=== PATIENT | male | born 1990 | race Hispanic/Latino ===

== ENCOUNTER 2017-12-06 08:42 | Emergency (ER) | payer SELFPAY ==
[2017-12-06 09:02] VITALS: BP 132/74
== END 2017-12-06 14:44 ==
LOC: ED 08:42
DX: R09.89 Other specified symptoms and signs involving the circulatory and respiratory systems (principal); Z53.21 Procedure and treatment not carried out due to patient leaving prior to being seen by health care provider

== ENCOUNTER 2020-01-05 17:38 | Emergency (ER) | payer SELFPAY ==
--- NOTE | 2020-01-05 21:16 | Event Note ---
ED Screening Note ED Screening Note: Pt presents with right knee pain that began today no fall or injury no numbness or weakness states that he is limping now states that he cannot stretch the leg out states he has right knee swelling PMHx asthma allergy: cefaclor, rocephin, penicillin, cefprozil This initial assessment/diagnostic orders/clinical plan/treatment(s) is/are subject to change based on patients health status, clinical progression and re- assessment by fellow clinical providers in the ED. Further treatment and workup at subsequent clinical providers discretion. Patient/guardian urged not to elope from the ED as their condition may be serious if not clinically assessed and managed. Initial orders include: XR of the right knee
[2020-01-05] MEDS ORDERED: predniSONE 20 MG TAB PO ONE (22:03)
[2020-01-05] MEDS ORDERED: IBUPROFEN 600 MG TAB PO ONE (22:03)
[2020-01-05] MEDS ORDERED: SULFAMETHOXAZOLE/TRIMETHOPRIM 800/160MG DS TAB PO ONE (22:03)
--- NOTE | 2020-01-05 22:45 | XRay Report ---
Right knee, 3 views INDICATION: Nontraumatic pain and swelling FINDINGS: The joint space is maintained. There is no fracture or dislocation. No spurring or arthriti c change. No bone lesion or periostitis. No significant abnormality. IMPRESSION: Negative study Signer Name: Nabil Max MD Signed: 01/05/2020 10:41 PM Workstation Name: [id number]
--- NOTE | 2020-01-05 23:31 | Emergency Department Report ---
ED General Adult HPI - General Chief complaint: Skin/Abscess/Foreign Body Stated complaint: KNEE Time Seen by Provider: 01/05/20 21:13 Source: patient Mode of arrival: Ambulatory Limitations: No Limitations - History of Present Illness Initial comments: Patient is 29-year-old male who presented to the ED with persistent chronic right knee pain with swelling for the last 1 week, worse in the last 2 days. Patient also complained of persistent mildly erythematous dorsal left foot rash around an open wound. Patient states that the pain in the right knee has worsened in the last 2 days. Patient states that the pain is worse with any active range of motion. Patient denies fever, chills, cough, nausea, vomiting, diarrhea, dizziness, headache, fall, traumatic injury, chest pain, shortness of breath, numbness and tingling or weakness of lower extremities bilaterally. MD Complaint: right knee pain; swollen erythematous open left foot wound -: Sudden, week(s) (1) Location: lower extremity (left foot; right knee) Radiation: non-radiation Severity scale (0 -10): 8 Quality: aching, sharp, constant Improves with: none Worsens with: none Associated Symptoms: denies other symptoms, rash (erythematous swollen painful left foot rash). denies: confusion, chest pain, cough, diaphoresis, fever/chills, headaches, loss of appetite, malaise, nausea/vomiting, seizure, shortness of breath, syncope, weakness Treatments Prior to Arrival: none - Related Data Previous Rx's Medication Instructions Recorded Last Taken Type Naproxen 500 mg PO Q12HR PRN #15 tablet 09/18/18 Unknown Rx levoFLOXacin [Levaquin TAB] 500 mg PO ONCE 10 Days #10 tablet 09/18/18 Unknown Rx Cyclobenzaprine [Flexeril] 10 mg PO Q8H PRN #15 tablet 01/05/20 Unknown Rx Ibuprofen [Motrin] 600 mg PO Q8H PRN #24 tablet 01/05/20 Unknown Rx Sulfamethoxazole/Trimethoprim 1 each PO Q12H #20 tablet 01/05/20 Unknown Rx [Bactrim DS TAB] predniSONE [Deltasone] 40 mg PO QDAY #10 tab 01/05/20 Unknown Rx Allergies Allergy/AdvReac Type Severity Reaction Status Date / Time cefaclor [From Ceclor] Allergy Unknown Verified 09/18/18 14:50 cefprozil [From Cefzil] Allergy Unknown Verified 09/18/18 14:50 ceftriaxone [From Rocephin] Allergy Unknown Verified 09/18/18 14:50 Penicillins Allergy Unknown Verified 09/18/18 14:50 ED Review of Systems ROS: Stated complaint: KNEE Other details as noted in HPI Constitutional: denies: chills, fever Eyes: denies: eye pain, eye discharge, vision change ENT: denies: ear pain, throat pain Respiratory: denies: cough, shortness of breath, wheezing Cardiovascular: denies: chest pain, palpitations Endocrine: no symptoms reported Gastrointestinal: denies: abdominal pain, nausea, diarrhea Genitourinary: denies: urgency, dysuria Musculoskeletal: joint swelling (right knee pain), arthralgia (right knee pain), myalgia, other (left foot pain due to open erythematous rash). denies: back pain Skin: rash (erythematous swollen painful rash on left foot). denies: lesions Neurological: denies: headache, weakness, paresthesias Psychiatric: denies: anxiety, depression Hematological/Lymphatic: denies: easy bleeding, easy bruising ED Past Medical Hx - Past Medical History Previous Medical History?: Yes Hx Asthma: Yes - Surgical History Past Surgical History?: Yes Additional Surgical History: testicular surgery. 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 - Social History Smoking Status: Current Every Day Smoker Substance Use Type: Alcohol, Marijuana - Medications Home Medications: Home Medications Medication Instructions Recorded Confirmed Last Taken Type Naproxen 500 mg PO Q12HR PRN #15 tablet 09/18/18 Unknown Rx levoFLOXacin [Levaquin TAB] 500 mg PO ONCE 10 Days #10 tablet 09/18/18 Unknown Rx Cyclobenzaprine [Flexeril] 10 mg PO Q8H PRN #15 tablet 01/05/20 Unknown Rx Ibuprofen [Motrin] 600 mg PO Q8H PRN #24 tablet 01/05/20 Unknown Rx Sulfamethoxazole/Trimethoprim 1 each PO Q12H #20 tablet 01/05/20 Unknown Rx [Bactrim DS TAB] predniSONE [Deltasone] 40 mg PO QDAY #10 tab 01/05/20 Unknown Rx ED Physical Exam - General Limitations: No Limitations General appearance: alert, in no apparent distress - Head Head exam: Present: atraumatic, normocephalic, normal inspection - Eye Eye exam: Present: normal appearance, PERRL, EOMI Pupils: Present: normal accommodation - ENT ENT exam: Present: normal exam, normal orophraynx, mucous membranes moist, TM's normal bilaterally, normal external ear exam - Neck Neck exam: Present: normal inspection, full ROM - Respiratory Respiratory exam: Present: normal lung sounds bilaterally. Absent: respiratory distress, wheezes, rales, rhonchi, chest wall tenderness, accessory muscle use, decreased breath sounds - Cardiovascular Cardiovascular Exam: Present: regular rate, normal rhythm, normal heart sounds. Absent: systolic murmur, diastolic murmur, rubs, gallop - GI/Abdominal GI/Abdominal exam: Present: soft, normal bowel sounds. Absent: distended, tenderness, guarding, rebound, hyperactive bowel sounds, hypoactive bowel sounds, organomegaly - Extremities Exam Extremities exam: Present: normal inspection, full ROM, tenderness (Palpable right knee tenderness with mild swelling; palpable dorsal left foot tenderness due to a mildly erythematous maculopapular rash on an open wound), normal capillary refill, joint swelling (right knee). Absent: calf tenderness - Back Exam Back exam: Present: normal inspection, full ROM. Absent: tenderness, CVA tenderness (R), CVA tenderness (L), muscle spasm, paraspinal tenderness, vertebr al tenderness - Neurological Exam Neurological exam: Present: alert, oriented X3, CN II-XII intact, normal gait, reflexes normal - Psychiatric Psychiatric exam: Present: normal affect, normal mood - Skin Skin exam: Present: warm, dry, intact, normal color, rash (Mildly erythematous maculopapular rash around an open left dorsal foot wound), erythema ED Course Vital Signs 01/05/20 01/05/20 01/05/20 19:12 21:15 22:19 Temperature 99.1 F 99.1 F Pulse Rate 82 83 Respiratory 18 18 18 Rate Blood Pressure 138/92 138/92 O2 Sat by Pulse 98 98 Oximetry ED Medical Decision Making - Radiology Data Radiology results: report reviewed, image reviewed Right knee x-ray shows no acute fractures or subluxations. - Medical Decision Making In this is a 29-year-old male with a history of chronic right knee pain who presented to the ED with acute exacerbation of the right knee pain for the last 2 days and swollen mildly erythematous rash on the dorsal left foot around an open wound. In the ED, patient is alert and oriented x3 and is not in any distress. Patient was treated for pain and also given oral antibiotics in the ED. Right knee x-ray shows no acute fractures or subluxations. On reevaluation, patient's pain is well controlled with medications. Patient was discharged home on medications and advised follow-up with his primary care physician in 7 to 10 days for reevaluation. Patient was advised return to the ED immediately if symptoms get worse. - Differential Diagnosis cellulitis; right knee pain; osteoarthritis; right knee sprain Critical care attestation.: If time is entered above; I have spent that time in minutes in the direct care o f this critically ill patient, excluding procedure time. ED Disposition Clinical Impression: Cellulitis of left foot, Right anterior knee pain Disposition: TO HOME OR SELFCARE Is pt being admited?: No Does the pt Need Aspirin: No Condition: Stable Instructions: Arthralgia (ED), Knee Pain (ED), Cellulitis (ED) Additional Instructions: Take medication with food, drink plenty of fluids and follow-up with your primary care physician in 7 to 10 days for reevaluation. Return to the ED immediately if symptoms get worse. Prescriptions: Sulfamethoxazole/Trimethoprim [Bactrim DS TAB] 1 each PO Q12H #20 tablet predniSONE [Deltasone] 40 mg PO QDAY #10 tab Cyclobenzaprine [Flexeril] 10 mg PO Q8H PRN #15 tablet PRN Reason: Muscle Spasm Ibuprofen [Motrin] 600 mg PO Q8H PRN #24 tablet PRN Reason: Pain Referrals: [facility] [Outside] - 7-10 days Time of Disposition: 23:34 Print Language: AZERI
[2020-01-06 00:30] VITALS: BP 150/84
== END 2020-01-06 00:20 | disposition home or self-care (01) ==
LOC: ED 17:38
DX: L03.116 Cellulitis of left lower limb (principal); L03.115 Cellulitis of right lower limb; J45.909 Unspecified asthma, uncomplicated; F17.200 Nicotine dependence, unspecified, uncomplicated; F12.10 Cannabis abuse, uncomplicated; Z88.0 Allergy status to penicillin; Z88.1 Allergy status to other antibiotic agents; Z79.899 Other long term (current) drug therapy
CPT/HCPCS: 73562; 99283; J7512

== ENCOUNTER 2020-10-08 19:05 | Emergency (ER) | payer SELFPAY ==
--- NOTE | 2020-10-08 19:11 | Event Note ---
ED Screening Note Date of service: 10/08/20 Time: 19:10 ED Screening Note: Patient presents via EMS for suicidal ideations Patient denies any SI/HI and states that he told his mother he was very depressed due to his leaving him and his mother called [phone] He reports a history of bipolar disorder and states compliance with his medications States history of suicidal ideations This initial assessment/diagnostic orders/clinical plan/treatment(s) is/are subject to change based on patients health status, clinical progression and re- assessment by fellow clinical providers in the ED. Further treatment and workup at subsequent clinical providers discretion. Patient/guardian urged not to elope from the ED as their condition may be serious if not clinically assessed and managed. Initial orders include: Labs Mental health eval
[2020-10-08 19:59] LABS: Basophils # (Auto) 0.1 K/mm3 (0.0-0.1); Basophils % (Auto) 0.5 % (0.0-1.8); Eosinophils # (Auto) 0.3 K/mm3 (0.0-0.4); Eosinophils % (Auto) 2.9 % (0.0-4.3); Hematocrit 46.8 % (35.5-45.6); Lymphocytes # (Auto) 2.6 K/mm3 (1.2-5.4); Lymphocytes % (Auto) 25.5 % (13.4-35.0); Mean Corpuscular HGB Conc 34 % (32-34); Mean Corpuscular Volume 93 fl (84-94); Monocytes # (Auto) 0.8 K/mm3 (0.0-0.8); Monocytes % (Auto) 7.8 % (0.0-7.3); Platelet Count 231 K/mm3 (140-440); Red Blood Count 5.04 M/mm3 (3.65-5.03); Red Cell Distribution Width 13.2 % (13.2-15.2)
[2020-10-08 20:08] LABS: Alanine Aminotransferase 12 units/L (7-56); Albumin 4.9 g/dL (3.9-5); BUN/Creatinine Ratio 7; Blood Urea Nitrogen 8 mg/dL (9-20); Hemolysis Index 8
[2020-10-08 20:14] LABS: Cocaine Screen,Urine Negative; Methadone Screen,Urine Negative; Opiate Screen,Urine Negative
[2020-10-08 20:27] LABS: Amphetamine Screen,Urine Positive; Benzodiazepines Screen,Urine Positive; Cannabinoid Screen,Urine Positive
[2020-10-08 20:34] LABS: Bilirubin,Urine NEG (Negative); Blood,Urine SM (Negative); Color,Urine Yellow (Yellow); Mucus,Urine FEW /HPF; Urobilinogen,Urine < 2.0 mg/dL (<2.0)
[2020-10-08] MEDS ORDERED: NICOTINE 21 MG/24 HR PATCH TD ONE (23:43)
--- NOTE | 2020-10-09 10:37 | Consultation ---
History of Present Illness - Reason for Consult Consult date: 10/09/20 Reason for consult: suicidal ideation - History of Present Psychiatric Illness The patient's medical record was reviewed and the patient's progress was discussed with the nursing staff. Cristo Wolff is a 30y/o male patient who was brought into the hospital by ambulance after mom called because the patient stated something about wanting to . During my interview with the patient he is a/ox 3. He is lucid and conversational. He is calm and cooperative. The patient says he's going through a divorce. He says his told him she was leaving and it made him say some things that he shouldn't have. The patient states, "am I depressed? yes. Suicidal, no." He says "my mom actually took that and ran." He says, "I told her I felt like dying, but that's a difference than me actually trying to hurt myself." He says, "I do say that a lot but I've never actually gone through with it." He says, "I'll never call my mom for help again, because she takes things to the extreme." The patient says "I have kids. I watch them while my works and I would never hurt myself for that reason." He denies any suicidal attempts in the past, he says "thoughts and say it a lot, but not actual attempts." The patient also denies hallucinations of any kind. He says he was diagnosed with "bipolar, and chronic anxiety disorder" He says he takes "trileptal, and klonopin." The patient says he's tried different drugs. He says "but most recently THC and klonopin." He is positive for methamphetamine, benzos and THC. The patient states that he is prescribed klonopin. Spoke with mom, who does confirm most of what the patient says. She says the patient is going through a divorce and he watches his children. She says that the patient has never had a suicidal attempt but she says he says it a lot. When asking mom about him hanging himself, she says he did not attempt to hang himself but she says there was a rope in the shed with a brick tied to it. Mom says the patient is very impulsive and will take any drug he gets his hands on. She says but he doesn't intentional take meds to overdose, but states he does drugs. She says he was recently admitted to [facility] about five moths ago for threatening to jump off of a bridge. Mom says the patient [place] himself, and was hitting himself as hard as he could last night. She says he has a dark side and can switch like a light switch. Mom says he doesn't comply with his medical regimen that much and only sees his psychiatrist when he runs out of meds. Mom says everytime he's admitted into a psych facility he goes for a couple of days and then they send him home. PAST PSYCHIATRIC HISTORY Diagnoses: Bipolar and chronic anxiety disorder Suicide attempts or Self-harm behavior: None reported Prior psychiatric hospitalizations: Yes Substance Abuse history: meth, benzos Previous psychiatric medications tried: Trileptal, benzos Outpatient treatment: yes PAST MEDICAL HISTORY: None reported Family Psychiatric History: None reported or documented SOCIAL HISTORY Marital Status: Living Arrangements: with family Employment Status: Unemployed Access to guns/weapons: Denies Education: 12th grade History of Abuse: Denies Legal History: None reported REVIEW OF SYSTEMS Constitutional: Negative for weight loss ENT: Negative for stridor Respiratory: Negative for cough or hemoptysis All other systems reviewed and are negative MENTAL STATUS EXAMINATION General Appearance and Behavior: Age appropriate, good hygiene, not wearing appropriate clothes, good eye contact, cooperative polite with questioning. Cooperation: Participating/engaged Psychomotor Behavior: Psychomotor normal Mood: "depressed" Affect and affective range: Congruent with stated mood Thought Process: goal directed Thought Content: None Speech: pressured, loud volume at times Suicidal Ideation: Denies SI Homicidal Ideation: Denies HI Hallucinations: Denies Delusions: None elicited Impulse Control: Impaired Insight and Judgment: Limited insight and judgment Memory: Normal, Attention: Divided attention impaired Orientation: Alert, oriented, Assessment and Plan Acute Stress Reaction Bipolar Disorder, Current Episode Depressed Amphetamine Use Disorder Noncompliance with other medical treatment and regimen Treatment D/c 1013 Start Zoloft 25mg po daily Start Vistaril 25mg po BID Start Depakote DR 125mg po BID Start Trazodone 50mg po qhs Medical: Per primary Sitter: Defer to [facility] Disposition: Recommend acute inpatient treatment Will follow on Sunday if not transferred. Medications and Allergies Allergies Allergy/AdvReac Type Severity Reaction Status Date / Time cefaclor [From Ceclor] Allergy Unknown Verified 09/18/18 14:50 cefprozil [From Cefzil] Allergy Unknown Verified 09/18/18 14:50 ceftriaxone [From Rocephin] Allergy Unknown Verified 09/18/18 14:50 Penicillins Allergy Unknown Verified 09/18/18 14:50 Home Medications Medication Instructions Recorded Confirmed Last Taken Type Naproxen 500 mg PO Q12HR PRN #15 tablet 09/18/18 Unknown Rx levoFLOXacin [Levaquin TAB] 500 mg PO ONCE 10 Days #10 tablet 09/18/18 Unknown Rx Cyclobenzaprine [Flexeril] 10 mg PO Q8H PRN #15 tablet 01/05/20 Unknown Rx Ibuprofen [Motrin] 600 mg PO Q8H PRN #24 tablet 01/05/20 Unknown Rx Sulfamethoxazole/Trimethoprim 1 each PO Q12H #20 tablet 01/05/20 Unknown Rx [Bactrim DS TAB] predniSONE [Deltasone] 40 mg PO QDAY #10 tab 01/05/20 Unknown Rx Mental Status Exam - Vital signs Last Vital Signs Temp 97.6 F 10/09/20 08:27 Pulse 76 10/09/20 08:27 Resp 20 10/09/20 08:27 BP 100/60 10/09/20 08:27 Pulse Ox 95 10/09/20 08:27 Results Result Diagrams: 10/08/20 19:21 10/08/20 19:21 Abnormal lab results 10/08/20 10/08/20 10/08/20 Range/Units 19:21 19:21 19:21 RBC 5.04 H (3.65-5.03) M/mm3 Hgb 16.0 H (11.8-15.2) gm/dl Hct 46.8 H (35.5-45.6) % [place] % (Auto) 7.8 H (0.0-7.3) % BUN 8 L (9-20) mg/dL Salicylates < 0.3 L (2.8-20.0) mg/dL Acetaminophen (10.0-30.0) ug/mL 10/08/20 Range/Units 19:21 RBC (3.65-5.03) M/mm3 Hgb (11.8-15.2) gm/dl Hct (35.5-45.6) % [place] % (Auto) (0.0-7.3) % BUN (9-20) mg/dL Salicylates (2.8-20.0) mg/dL Acetaminophen 5.0 L (10.0-30.0) ug/mL All other labs normal.
[2020-10-09] MEDS ORDERED: SERTRALINE 25 MG TAB PO SCH (12:00)
[2020-10-09] MEDS: DIVALPROEX DR 125 MG TAB PO SCH ×2 (14:06→23:25)
[2020-10-09] MEDS: hydrOXYzine PAMOATE 25 MG CAP PO SCH ×2 (14:07→23:26)
[2020-10-09] MEDS ORDERED: NICOTINE 21 MG/24 HR PATCH TD ONE (14:20)
[2020-10-09] MEDS: traZODone 50 MG TAB PO SCH (23:26)
--- NOTE | 2020-10-10 09:29 | Progress Note ---
Subjective - Reason for Consult Consult date: 10/10/20 Reason for consult: SI - Chief Complaint Chief complaint: During my interview with the patient today, Cristo is lying down. He denies SI/HI, but states "I hurt myself because I don't have any coping skills." He denies hallucinations. He describes his mood as "depressed." Spoke with mom yesterday who is convinced the patient is a danger to himself and not being forthcoming. REVIEW OF SYSTEMS Constitutional: Negative for weight loss ENT: Negative for stridor Respiratory: Negative for cough or hemoptysis All other systems reviewed and are negative MENTAL STATUS EXAMINATION General Appearance and Behavior: Age appropriate, good hygiene, not wearing appropriate clothes, good eye contact, cooperative polite with questioning. Cooperation: Participating/engaged Psychomotor Behavior: Psychomotor normal Mood: "depressed" Affect and affective range: Congruent with stated mood Thought Process: goal directed Thought Content: None Speech: normal tone and pace Suicidal Ideation: Denies SI Homicidal Ideation: Denies HI Hallucinations: Denies Delusions: None elicited Impulse Control: Impaired Insight and Judgment: Limited insight and, poor judgment Memory: Normal, Attention: normal Orientation: Alert, oriented, Assessment and Plan Acute Stress Reaction Bipolar Disorder, Current Episode Depressed Amphetamine Use Disorder Noncompliance with other medical treatment and regimen Treatment increase Zoloft 50mg po daily increase Depakote DR 250mg po BID Medical: Per primary Sitter: Defer to [facility] Disposition: Recommend acute inpatient treatment Will follow. Thanks for this consult Mental Status Exam - Vital signs Last Vital Signs Temp 97.4 F L 10/10/20 02:30 Pulse 70 10/10/20 02:30 Resp 18 10/10/20 02:30 BP 142/74 10/10/20 02:30 Pulse Ox 98 10/10/20 02:30
[2020-10-10] MEDS ORDERED: SERTRALINE 50 MG TAB PO SCH (10:00)
[2020-10-10] MEDS ORDERED: NICOTINE 21 MG/24 HR PATCH TD ONE (10:14)
[2020-10-10] MEDS: hydrOXYzine PAMOATE 25 MG CAP PO SCH ×2 (11:12→22:17)
[2020-10-10] MEDS: DIVALPROEX DR 250 MG TAB PO SCH ×2 (11:12→22:17)
[2020-10-10 15:23] LABS: Hematocrit 42.8 % (35.5-45.6); Mean Corpuscular HGB Conc 35 % (32-34); Mean Corpuscular Volume 91 fl (84-94); Platelet Count 207 K/mm3 (140-440); Red Cell Distribution Width 13.1 % (13.2-15.2)
[2020-10-10] MEDS: traZODone 50 MG TAB PO SCH (22:17)
[2020-10-11 07:51] VITALS: BP 122/88
== END 2020-10-11 08:45 ==
LOC: ED 19:05
DX: R45.851 Suicidal ideations (principal); Z79.899 Other long term (current) drug therapy; Z88.0 Allergy status to penicillin; Z88.8 Allergy status to other drugs, medicaments and biological substances; Z20.828 Contact with and (suspected) exposure to other viral communicable diseases
CPT/HCPCS: 36415; 80053; 80307; 81001; 85025; 85027; 99285; Q0177; U0003; 80320; G0480